=== PATIENT | male | born 1970 | race Two or more races ===

== ENCOUNTER 2020-01-03 13:18 | Emergency (ER) | payer MEDICAID, OTHER ==
[~2020-01-03] VITALS: Ht 30.5 cm; Wt 111.6 kg
[2020-01-03] MEDS ORDERED: SODIUM CHLORIDE 0.9% 1,000 ML IV ONE (20:15)
[2020-01-03] MEDS ORDERED: cefTRIAXone 1GM/50ML D5W 50 ML IV ONE (20:15)
[2020-01-03] MEDS ORDERED: CLINDAMYCIN 900MG IV 50 ML IV ONE (20:15)
[2020-01-03] MEDS ORDERED: HYDROcodone-ACET 10/325MG TAB PO ONE (20:30)
[2020-01-03] MEDS ORDERED: TETANUS-DIPTH-ACEL PERTUSSIS 0.5ML SYR Tdap IM ONE (20:30)
[2020-01-03 20:57] LABS: Basophils # (auto) 0.2 10 ^3/uL (0-0.2); Basophils % (auto) 1.3 % (0.0-2.0); Eosinophils # (auto) 0.4 10 ^3/uL (0-0.8); Eosinophils % (auto) 2.6 % (0.0-7.0); Hemoglobin 16.7 g/dL (13.5-17.5); Lymphocytes # (auto) 3.1 10 ^3/uL (0.4-5.4); Lymphocytes % (auto) 20.2 % (10.0-50.0); Mean Corpuscular Hemoglobin 29.8 pg (28.0-32.0); Mean Corpuscular Hgb Conc. 32.7 g/dL (32.0-36.0); Monocytes # (auto) 1.6 10 ^3/uL (0-1.3); Neutrophils # (auto) 10.2 10 ^3/uL (1.6-8.6); Neutrophils % (auto) 65.9 % (37.0-80.0); Nucleated Red Blood Cells % 0.1 %; Platelet Count (auto) 241 10^3/uL (140-450); White Blood Cell 15.5 10^3/uL (4.4-10.8)
[2020-01-03 21:13] LABS: Albumin 3.7 g/dL (3.4-5.0); Potassium 3.9 mmol/L (3.5-5.1)
[2020-01-03 21:17] LABS: BUN/Creatinine Ratio 15.8; Bilirubin, Total 0.9 mg/dL (0.2-1.0); Total Protein 8.4 g/dL (6.4-8.2)
[2020-01-03] MEDS ORDERED: ZINC SULFATE 220mg CAP or TAB PO ONE (23:30)
[2020-01-03] MEDS ORDERED: DexAMETHasone 4 MG TAB PO ONE (23:30)
[2020-01-03] MEDS ORDERED: ASCORBIC ACID 500 MG TAB PO ONE (23:30)
[2020-01-03] MEDS ORDERED: DOCUSATE SOD 100 MG CAP PO ONE (23:45)
[2020-01-04 01:10] LABS: Magnesium 2.5 mg/dL (1.6-2.6)
[2020-01-04 01:13] LABS: Urine Bacteria FEW /hpf (None Seen); Urine Blood Negative /uL (Negative); Urine Mucus FEW (None Seen); Urine Specific Gravity 1.023 (1.001-1.035); Urine WBC 1 /hpf (0 - 3)
[2020-01-04 01:19] LABS: CRP High Sensitivity 10.2 mg/dL (< 0.3)
[2020-01-04 01:30] LABS: Alcohol, Urine < 3.0 mg/dL (0-10); Amphetamine Screen, Urine POSITIVE (NEGATIVE); Barbiturate Scree,Urine NEGATIVE (NEGATIVE); Benzodiazephine Screen, Urine NEGATIVE (NEGATIVE); Cannabinoid Screen, Urine NEGATIVE (NEGATIVE); Cocaine Screen, Urine NEGATIVE (NEGATIVE); Opiate Scree,Urine NEGATIVE (NEGATIVE); Phencyclidine Screen, Urine NEGATIVE (NEGATIVE)
[2020-01-04 02:00] VITALS: BP 128/93
--- NOTE | 2020-01-04 11:40 | NUR ---
I faxed follow up appointment requests to [facility].
--- NOTE | 2020-01-04 14:34 | NUR ---
I received a call from Neelam at [facility] letting me know that the authorization number for outpatient orthopedic doctor is [id number]. Per Neelam, they will contact patient and let him know so he can make an appointment.
== END 2020-01-04 02:30 | disposition home or self-care (01) ==
LOC: ER 13:18
DX: L03.116 Cellulitis of left lower limb (principal); M71.22 Synovial cyst of popliteal space [Baker], left knee; K59.00 Constipation, unspecified; K76.0 Fatty (change of) liver, not elsewhere classified; R16.0 Hepatomegaly, not elsewhere classified; N39.0 Urinary tract infection, site not specified; R94.5 Abnormal results of liver function studies; F15.10 Other stimulant abuse, uncomplicated
CPT/HCPCS: 36415; 71045; 73562; 73700; 74176; 80053; 80307; 81001; 82728; 83605; 83615; 83735; 83880; 84443; 84484; 85025; 86141; 87040; 87426; 96365; 96366; 96368; 99285; J0696; J3490; J8540; U0003; 90715; 96367